=== PATIENT | female | born 1935 | race Caucasian/White ===

== ENCOUNTER 2020-11-10 08:21 | Outpatient (CLI) | payer MEDICARE, OTHER ==
--- NOTE | 2020-11-10 09:56 | CT Report ---
PROCEDURE: PELVIS WO INDICATIONS: PELVIC AND PERINEAL PAIN TECHNIQUE: Noncontrast 3 mm axial sections acquired through the bony pelvis, with coronal and sagittal reformatt ing. For radiation dose reduction, the following was used: automated exposure control, adjustment of mA and/or kV according to patient size. COMPARISON: None. FINDINGS: Image quality: Excellent. Bones: Diffuse osteopenia. No acute fracture identified. [id number]-ra-[id number] bilateral hip degenerative joint disease. Scattered degenerative spurring and subchondral sclerosis. Diffuse osteopenia. Multil evel spondylytic/degenerative endplate changes. Diffuse facet arthropathy. Soft tissues: Soft tissues are unremarkable. Scattered calcifications seen in the aorta bladder deco mpressed and otherwise unremarkable. Grade 1 anterolisthesis of L4 on L5. Mild L5 compression fractur e with moderate central height loss, technically age indeterminate. Calcific tendinitis seen at the r ight greater trochanter. IMPRESSION: No acute abnormality. 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 If the patient's pa in or other symptoms persist, consider further evaluation with MRI. Osteopenia. Reviewed by: Jonnie Cheng MD on 11/10/2020 9:54 AM PDT Approved by: Jonnie Cheng MD on 11/10/2020 9:54 AM PDT Station ID: [id number]
== END 2020-11-10 08:22 | disposition home or self-care (01) ==
LOC: DI 08:21
PROVIDERS: ATTEND Registered Nurse
DX: M16.0 Bilateral primary osteoarthritis of hip (principal)

== ENCOUNTER 2021-01-12 10:42 | Outpatient (CLI) | payer MEDICARE, OTHER ==
--- NOTE | 2021-01-12 14:09 | XRAY Report ---
PROCEDURE: Lumbar Spine 2 View INDICATIONS: COSTAL CHONDRITIS TECHNIQUE: 2 views of the lumbar spine were acquired. COMPARISON: Same day thoracic spine radiographs. CT pelvis 11/10/2020. FINDINGS: Bones: 5 [id number] vertebrae are present. Normal scoliosis. Anterolisthesis of L4 on L5 measur ing 0.8 cm. Mild L1 compression fracture. Minimal height loss at L3. Lumbar spine degenerative change . No suspicious bony lesions. Bones appear osteopenic. Soft tissues: Overlying bowel gas pattern is normal. Aortic vascular calcifications. No suspicious soft tissue calcifications. IMPRESSION: Age indeterminate L1 and L3 compression fractures. Bones appear osteopenic. Lumbar spine degenerative change. Reviewed by: Nikolay Jones MD on 01/12/2021 2:08 PM PDT Approved by: Nikolay Jones MD on 01/12/2021 2:08 PM PDT Station ID: [id number]
--- NOTE | 2021-01-12 14:30 | XRAY Report ---
PROCEDURE: Ribs Bilat w/Chest 4 View INDICATIONS: COSTAL CHONDRITIS TECHNIQUE: 3 views of the bilateral ribs were acquired, along with a single view chest. COMPARISON: Thoracic spine x-ray 01/12/2021 FINDINGS: Surgical changes and devices: None. Bones and chest wall: Multilevel compression deformities are present within the thoracic spine. No lynch spicious bony lesions. Overlying soft tissues appear unremarkable. There is rightward scoliotic cur vature within the lower thoracic spine. Lungs and pleura: No pleural effusions or pneumothorax. Lungs appear clear. Mediastinum: Mediastinal contours appear normal. Heart size is normal. IMPRESSION: 1. Multilevel thoracic spine compression deformities of indeterminate age. 2. No visualized rib fractures. Reviewed by: Anna Ashton MD on 01/12/2021 2:29 PM PDT Approved by: Anna Ashton MD on 01/12/2021 2:29 PM PDT Station ID: [id number]
--- NOTE | 2021-01-12 14:39 | XRAY Report ---
PROCEDURE: Thoracic Spine 2 View INDICATIONS: COSTAL CHONDRITIS TECHNIQUE: 3 views of the thoracic spine were acquired. COMPARISON: None. FINDINGS: Bones: Visualized ribs are intact. There is moderate wedging of a midthoracic vertebral body, roughly at the T7 level. Moderate wedging at T5. Moderate wedging at L1. These are of uncertain acuity. Soft tissues: No paravertebral stripe thickening. IMPRESSION: Age-indeterminate compression fractures within the thoracolumbar spine. MRI of the thoracic and lumba r spine is recommended for further assessment. Reviewed by: Silvia Bray MD on 01/12/2021 2:38 PM PDT Approved by: Silvia Bray MD on 01/12/2021 2:38 PM PDT Station ID: [id number]
[2021-01-12 15:25] LABS: ALBUMIN 3.8 g/dL (3.2-5.5); ALBUMIN/GLOBULIN RATIO 1.2 (1.0-2.2); BILIRUBIN,TOTAL 0.5 mg/dL (0.2-1.0); CALCIUM 8.6 mg/dL (8.5-10.3); CREATININE 0.6 mg/dL (0.4-1.0); TOTAL PROTEIN 7.1 g/dL (6.7-8.2)
== END 2021-01-12 10:43 | disposition home or self-care (01) ==
LOC: DI.S 10:42
PROVIDERS: ATTEND Nurse Practitioner Family
DX: M48.56XA Collapsed vertebra, not elsewhere classified, lumbar region, initial encounter for fracture (principal); M43.16 Spondylolisthesis, lumbar region; M47.816 Spondylosis without myelopathy or radiculopathy, lumbar region; R93.7 Abnormal findings on diagnostic imaging of other parts of musculoskeletal system; M94.0 Chondrocostal junction syndrome [Tietze]
CPT/HCPCS: 36415; 80053

== ENCOUNTER 2021-01-21 09:08 | Outpatient (CLI) | payer MEDICARE, OTHER | END 2021-01-21 09:09 | disposition home or self-care (01) | LOC: LAB.S 09:08 | PROVIDERS: ATTEND Registered Nurse | DX: M81.0 Age-related osteoporosis without current pathological fracture (principal) | CPT/HCPCS: 36415; 82306; 83970 ==

== ENCOUNTER 2021-01-22 08:27 | Outpatient (CLI) | payer MEDICARE, OTHER ==
--- NOTE | 2021-01-22 09:28 | DEXA Report ---
PROCEDURE: Dexa Spine and/or Hip INDICATIONS: ASYMPTOMATIC MENOPAUSAL STATE TECHNIQUE: Dual energy x-ray absorptiometry (DXA) was performed on a [employer] System. Regions measur ed are the AP Spine, femoral neck, and if needed forearm. COMPARISON: None. FINDINGS: Lumbar Spine: Bone Mineral Density 0.845 g/cm/cm,T score -2.8, osteoporosis Left Femoral Neck: Bone Mineral Density 0.499 g/cm/cm, T score -4.0, osteoporosis (T score greater or equal to -1.0: NORMAL) (T score from -1.1 to -2.4: OSTEOPENIA) (T score less than or equal to -2.5 to: OSTEOPOROSIS) Impression: Osteoporosis. Patient is at high risk for fracture. Patients with diagnosis of osteoporosis or osteopenia should have regular bone mineral density assess ment. For those eligible for Medicare, routine testing is allowed once every 2 years. Testing frequ ency can be increased for patients who have rapidly progressing disease or for those who are receivin g medical therapy to restore bone mass. Reviewed by: Victor Manuel Davidson MD on 01/22/2021 9:27 AM PDT Approved by: Victor Manuel Davidson MD on 01/22/2021 9:27 AM PDT Station ID: [id number]
== END 2021-01-22 08:28 | disposition home or self-care (01) ==
LOC: DI 08:27
PROVIDERS: ATTEND Nurse Practitioner Family
DX: M81.0 Age-related osteoporosis without current pathological fracture (principal)

== ENCOUNTER 2021-02-20 10:15 | Emergency (ER) | payer MEDICARE, OTHER ==
--- NOTE | 2021-02-20 10:30 | ED Physician Documentation ---
PD HPI LOWER EXT INJURY - Stated complaint Stated Complaint: HIP/DAVID PX - History obtained from History obtained from: Patient - History of Present Illness PD HPI LOW EXT INJURY LOCATION: Left, Hip, Other (also pain lumbar back.) Type of injury: Fall, Twist (had onset lumbar pain last week when bent over to water/turn potted plant. Today with slip and low velocity fall, but pain left hip and worse low back.) Where injury occurred: Home Timing - onset: Today (for left hip), How many weeks ago (last week onset of low back pain) Timing - duration: Days Timing - details: Abrupt onset, Still present Worsened by: Moving, Palpating, Other (attempted weight bearing) Associated symptoms: No: Weakness, Numbness Contributing factors: No: Anticoagulated, Prosthetic joint Similar symptoms before: Has not had sx before Recently seen: Clinic (seen in office with lumbar pain last week, with xray showing compression fx lumbar. Scheduled for MRI of lumbar area, but unable to get scheduled until Mar 04.) Review of Systems Constitutional: denies: Fever, Chills Nose: denies: Rhinorrhea / runny nose, Congestion Throat: denies: Sore throat Cardiac: denies: Chest pain / pressure Respiratory: denies: Dyspnea, Cough GI: denies: Abdominal Pain, Nausea, Vomiting, Diarrhea : denies: Dysuria Skin: denies: Rash, Lesions Neurologic: reports: Focal weakness (she feels left leg is weaker as it hurts to try to lift and move left hip.). denies: Generalized weakness, Numbness, Altered mental status, Head injury, LOC Endocrine: denies: Weight loss PD PAST MEDICAL HISTORY - Past Medical History Cardiovascular: None Respiratory: None Endocrine/Autoimmune: None GI: None : None HEENT: None Psych: None Musculoskeletal: None Derm: None - Past Surgical History HEENT: Cataracts - Present Medications Home Medications: Ambulatory Orders Medication Instructions Recorded Confirmed C,E,Zinc,Copper 24/Om3/Lut/Giana 1 cap PO DAILY 12/04/12 02/20/21 [Ocuvite Softgel] - Allergies Allergies/Adverse Reactions: Allergies Allergy/AdvReac Type Severity Reaction Status Date / Time No Known Drug Allergies Allergy Verified 02/20/21 10:27 PD ED PE NORMAL - Vitals Vital signs reviewed: Yes - General General: Alert and oriented X 3, Well developed/nourished - HEENT HEENT: Atraumatic - Neck Neck: Supple, no meningeal sign, No adenopathy - Cardiac Cardiac: RRR, No murmur - Respiratory Respiratory: Clear bilaterally - Abdomen Abdomen: Soft, Non tender - Back Back: No CVA TTP - Derm Derm: Normal color, Warm and dry, No rash - Neuro Neuro: Alert and oriented X 3, No motor deficit, No sensory deficit, Normal speech, Other (2+ DTR right patella, 1+ on left. Normal heel reflexes. ) Eye Opening: Spontaneous Motor: Obeys Commands Verbal: Oriented GCS Score: 15 - Psych Psych: Normal mood, Normal affect Results - Vitals Vitals: Vital Signs - 24 hr 02/20/21 02/20/21 02/20/21 10:25 12:32 14:00 Temperature 36.7 C Heart Rate 95 94 81 Respiratory 16 16 18 Rate Blood Pressure 140/67 H 180/100 H 153/86 H O2 Saturation 97 98 99 02/20/21 16:00 Temperature Heart Rate 76 Respiratory 14 Rate Blood Pressure 124/65 O2 Saturation 99 Oxygen O2 Source Room air - Labs Labs: Laboratory Tests 02/20/21 02/20/21 02/20/21 13:17 13:31 13:31 WBC 3.8 L RBC 2.85 L Hgb 10.3 L Hct 29.1 L MCV 102.1 H MCH 36.1 H MCHC 35.4 RDW 13.1 Plt Count 162 MPV 8.4 Neut # (Auto) 2.3 Lymph # (Auto) 1.1 L Jefferson # (Auto) 0.4 Eos # (Auto) 0.0 Baso # (Auto) 0.0 Absolute Nucleated RBC 0.00 Nucleated RBC % 0.0 ESR > 140 H Sodium Potassium Chloride Carbon Dioxide Anion Gap BUN Creatinine Estimated GFR (MDRD) Glucose Calcium Phosphorus Magnesium Total Bilirubin AST ALT Alkaline Phosphatase Total Protein Albumin Globulin Albumin/Globulin Ratio Lipase CA 125 Antigen Nasal Adenovirus (PCR) NOT DETECTED Nasal B. parapertussis DNA (PCR) NOT DETECTED Nasal Coronavir 229E PCR NOT DETECTED Nasal Coronavir HKU1 PCR NOT DETECTED Nasal Coronavir NL63 PCR NOT DETECTED Nasal Coronavir OC43 PCR NOT DETECTED Nasal Enterovir/Rhinovir PCR NOT DETECTED Nasal Influenza B PCR NOT DETECTED Nasal Influenza A PCR NOT DETECTED Nasal Parainfluen 1 PCR NOT DETECTED Nasal Parainfluen 2 PCR NOT DETECTED Nasal Parainfluen 3 PCR NOT DETECTED Nasal Parainfluen 4 PCR NOT DETECTED Nasal RSV (PCR) NOT DETECTED Nasal B.pertussis DNA PCR NOT DETECTED Nasal C.pneumoniae (PCR) NOT DETECTED Shyam Human Metapneumo PCR NOT DETECTED Nasal M.pneumoniae (PCR) NOT DETECTED Nasal SARS-CoV-2 (PCR) NOT DETECTED 02/20/21 02/20/21 13:31 13:31 WBC RBC Hgb Hct MCV MCH MCHC RDW Plt Count MPV Neut # (Auto) Lymph # (Auto) Jefferson # (Auto) Eos # (Auto) Baso # (Auto) Absolute Nucleated RBC Nucleated RBC % ESR Sodium 133 L Potassium 3.9 Chloride 96 L Carbon Dioxide 27 Anion Gap 10.0 BUN 13 Creatinine 0.4 Estimated GFR (MDRD) 151 Glucose 97 Calcium 9.1 Phosphorus 4.2 Magnesium 2.1 Total Bilirubin 0.7 AST 40 ALT 29 Alkaline Phosphatase 71 Total Protein 7.2 Albumin 3.3 Globulin 3.9 Albumin/Globulin Ratio 0.8 L Lipase 154 H CA 125 Antigen 26.8 Nasal Adenovirus (PCR) Nasal B. parapertussis DNA (PCR) Nasal Coronavir 229E PCR Nasal Coronavir HKU1 PCR Nasal Coronavir NL63 PCR Nasal Coronavir OC43 PCR Nasal Enterovir/Rhinovir PCR Nasal Influenza B PCR Nasal Influenza A PCR Nasal Parainfluen 1 PCR Nasal Parainfluen 2 PCR Nasal Parainfluen 3 PCR Nasal Parainfluen 4 PCR Nasal RSV (PCR) Nasal B.pertussis DNA PCR Nasal C.pneumoniae (PCR) Shyam Human Metapneumo PCR Nasal M.pneumoniae (PCR) Nasal SARS-CoV-2 (PCR) - Rads (name of study) lumbar CT Radiology: Prelim report reviewed (lytic deformity L1 with compression fx 60% (worse than xray last week). L3 mild compression fx.), See rad report pelvic CT Radiology: Prelim report reviewed (pathologic comminuted acetabular fracture into articulating surface. ), See rad report PD MEDICAL DECISION MAKING - ED course Complexity details: reviewed results (pathologic fractures pelvis and lumbar with bone lesions femoral necks and sacral. Presume mets or multiple myeloma or such. Less likely Pagets with normal Ca level. But needs further evaluation/te sting, and likely MRI. Also question of surgical treatment for the fractures. Needs higher level of car), considered differential (has had back and pelvic pain for months, butr abrupt lumbar pain with bending last week, that has persisted and worse today. Also pain left hip today after slip and fall. Unable to walk/bear weight due to pain. ), d/w patient ED course: [facility] had no beds and also transfer center impression was may be too complicated for them as well. [facility] deferred to given the pathologic features of the fractures. able to accept the patient to their ER. Departure - Departure Disposition: 02 Transfer Acute Care Hosp Clinical Impression: Bone lesion Lumbar compression fracture Qualifiers: Encounter type: initial encounter Lumbar vertebra fracture level: L1 Qualified Code(s): S32.010A - Wedge compression fracture of first lumbar vertebra, initial encounter for closed fracture Pathologic acetabular fracture Qualifiers: Encounter type: initial encounter Laterality: left Qualified Code(s): M84.454A - Pathological fracture, pelvis, initial encounter for fracture Condition: Stable Record reviewed to determine appropriate education?: Yes Discharge Date/Time: 02/20/21 17:25
[2021-02-20] MEDS ORDERED: methocarbamoL 500 MG TABLET PO STA (11:20)
[2021-02-20] MEDS ORDERED: HYDROcod/ACETAM 5/325 MG TABLET PO STA (11:20)
--- NOTE | 2021-02-20 12:12 | CT Report ---
PROCEDURE: PELVIS WO INDICATIONS: hip pain TECHNIQUE: Noncontrast 3 mm axial sections acquired through the bony pelvis, with coronal and sagittal reformatt ing. For radiation dose reduction, the following was used: automated exposure control, adjustment of mA and/or kV according to patient size. COMPARISON: 11/10/2020 Correlation is made with the accompanying lumbar spine MRI, 02/20/2021. FINDINGS: Image quality: Excellent. Bones: There is a comminuted fracture of the left acetabulum. At this site, the bone is abnormally l ucent and appears eroded. Intra-articular involvement of the fracture lines can be seen. No additional fractures are seen. Within the right sacrum, there is an abnormal lesion of mixed density seen, as on series 2 image 23 a nd on series 5 image 43. A similar-appearing mixed density lesion can be seen involving the left femo ral neck. A less prominent appearing mixed density lesion can be seen involving the right femoral nec k. Osteopenia and degenerative changes can be seen throughout. Soft tissues: Mild soft tissue hematoma can be seen adjacent adjacent to the left acetabular fractur e. Atherosclerotic calcification is seen. No dilated loops of small bowel are seen. No free air or signi ficant free fluid can be seen. An atrophic uterus can be seen, which is considered normal for age. No adnexal masses are seen. No inguinal hernias are seen. No enlarged lymph nodes are seen. IMPRESSION: Pathologic fracture until proven otherwise involving the left acetabulum, with a comminuted fracture with intra-articular involvement. The bone at this site is abnormally lucent and appears eroded. Abnormal mixed density lesions seen involving both femoral necks as well as the right sacrum. When clinically appropriate, please consider follow-up MRI examinations, without and with IV contrast for further evaluation of the bone marrow (assuming that there is no contraindication). The abnormal findings have developed since the 11/10/2020 CT. Reviewed by: Jorge Flores MD on 02/20/2021 11:11 AM ARSENIO Approved by: Jorge Flores MD on 02/20/2021 11:11 AM ARSENIO Station ID: [id number]
--- NOTE | 2021-02-20 12:19 | CT Report ---
PROCEDURE: LUMBAR SPINE WO INDICATIONS: low back/left hip pain acute TECHNIQUE: Noncontrast 3 mm thick sections acquired from the T12 level to the sacrum. Sagittal and coronal refo rmats were constructed. For radiation dose reduction, the following was used: automated exposure co ntrol, adjustment of mA and/or kV according to patient size. COMPARISON: Correlation is made with prior lumbar spine plain films, 02/11/2021. Correlation is also made with the accompanying pelvis CT, 02/20/2021. FINDINGS: Image quality: Excellent. Bones: At T12, there is a mild central compression deformity seen, with 30% loss of height. This is likely similar to the prior plain film. There is a central compression of arteries seen involving L1, with approximately 60% loss of height c entrally. This appears progressed compared to the prior examination. There is abnormal lucency seen w ithin this vertebral body, particularly superiorly. At L3, there is a central compression deformity seen, 30-40% loss of height. There is mild lucency se en along the superior aspect of this vertebral body. This fracture is likely slightly progressed comp ared to the plain film dated 02/11/2021. There is an L5 central compression deformity seen, with 30% loss of height centrally. This appears sl ightly progressed compared to the prior examination. There is mild grade 1 anterolisthesis seen at the L4-L5 level, without associated pars defects. Face t arthropathy is seen, which is most prominent inferiorly. Generalized osteopenia and degenerative changes are seen. Soft tissues: No retroperitoneal masses or hematomas. Visualized aorta is normal in caliber. Ather osclerotic calcification is seen. IMPRESSION: Several lumbar spine compression of arteries are seen, a few of which appear progressed compared to t he recent prior plain film study dated 02/11/2021. Given the abnormal lucency (particularly at the L1 level) pathologic fractures are suspected, althoug h benign osteopenic fractures are also possible. When clinically appropriate, please consider a dedicated lumbar MRI (without and with contrast) for f urther evaluation (assuming that there is no contraindication). Grade 1 L4-5 anterolisthesis again seen, without associated pars defects. Reviewed by: Jorge Flores MD on 02/20/2021 11:17 AM ARSENIO Approved by: Jorge Flores MD on 02/20/2021 11:17 AM ARSENIO Station ID: [id number]
[2021-02-20] MEDS ORDERED: KETOROLAC 15 MG/ML VIAL IVP STA (13:14)
[2021-02-20 13:51] LABS: BASOPHILS % (AUTO) 0.5 %; EOSINOPHILS % (AUTO) 0.5 %; HCT - HEMATOCRIT 29.1 % (37.0-47.0); HGB - HEMOGLOBIN 10.3 g/dL (12.0-16.0); LYMPHOCYTES # (AUTO) 1.1 10^3/uL (1.5-3.5); LYMPHOCYTES % (AUTO) 29.7 %; MEAN CORPUSCULAR HEMOGLOBIN 36.1 pg (27.0-31.0); MEAN CORPUSCULAR HGB CONC 35.4 g/dL (32.0-36.0); MEAN CORPUSCULAR VOLUME 102.1 fL (81.0-99.0); MEAN PLATELET VOLUME 8.4 fL (7.9-10.8); MONOCYTES # (AUTO) 0.4 10^3/uL (0.0-1.0); MONOCYTES % (AUTO) 9.1 %; NEUTROPHILS # (AUTO) 2.3 10^3/uL (1.5-6.6); NEUTROPHILS % (AUTO) 59.9 %; PLT - PLATELET COUNT 162 10^3/uL (130-450); RED BLOOD COUNT 2.85 10^6/uL (4.20-5.40); RED CELL DISTRIBUTION WIDTH 13.1 % (12.0-15.0); WHITE BLOOD COUNT 3.8 x10^3/uL (4.8-10.8)
[2021-02-20 14:01] LABS: ALBUMIN 3.3 g/dL (3.2-5.5); ALBUMIN/GLOBULIN RATIO 0.8 (1.0-2.2); BILIRUBIN,TOTAL 0.7 mg/dL (0.2-1.0); CALCIUM 9.1 mg/dL (8.5-10.3); CREATININE 0.4 mg/dL (0.4-1.0); MAGNESIUM 2.1 mg/dL (1.7-2.8); PHOSPHORUS 4.2 mg/dL (2.5-4.6); POTASSIUM 3.9 mmol/L (3.5-5.0); TOTAL PROTEIN 7.2 g/dL (6.7-8.2)
[2021-02-20 14:21] LABS: B. PARAPERTUSSIS- RESP PCR PAN NOT DETECTED; B. PERTUSSIS- RESP PCR PANEL NOT DETECTED; C. PNEUMONIAE- RESP PCR PANEL NOT DETECTED; CORONAVIRUS 229E-RESP PCR NOT DETECTED; CORONAVIRUS HKU1-RESP PCR NOT DETECTED; CORONAVIRUS NL63-RESP PCR NOT DETECTED; CORONAVIRUS OC43-RESP PCR NOT DETECTED; HUMAN METAPNEUMOVIRUS NOT DETECTED; INFLUENZA A- RESP PCR PANEL NOT DETECTED; INFLUENZA B - RESP PCR PANEL NOT DETECTED; M. PNEUMONIAE- RESP PCR PANEL NOT DETECTED; PARAINFLUENZA VIRUS 1 NOT DETECTED; PARAINFLUENZA VIRUS 2 NOT DETECTED; PARAINFLUENZA VIRUS 3 NOT DETECTED; PARAINFLUENZA VIRUS 4 NOT DETECTED; RHINOVIRUS/ENTEROVIRUS NOT DETECTED; RSV- RESP PCR PANEL NOT DETECTED; SARS-CoV-2 -RESP PCR PANEL NOT DETECTED
[2021-02-20] MEDS ORDERED: HYDROmorphone 1 MG/ML CARPUJECT IVP STA ×2 (14:48→17:17)
[2021-02-20 16:05] VITALS: BP 124/65
== END 2021-02-20 17:25 | disposition short-term general hospital (02) ==
LOC: ED 10:15
DX: M84.454A Pathological fracture, pelvis, initial encounter for fracture (principal); S32.020A Wedge compression fracture of second lumbar vertebra, initial encounter for closed fracture; X50.1XXA Overexertion from prolonged static or awkward postures, initial encounter; Z20.822 Contact with and (suspected) exposure to COVID-19; Z79.899 Other long term (current) drug therapy
CPT/HCPCS: 36415; 72131; 72192; 80053; 83690; 83735; 84100; 85025; 85651; 86304; 87631; 96374; 96375; 99284; 99285; A9270; J1170; 0202U

== ENCOUNTER 2021-02-20 17:20 | Outpatient (CLI) | payer MEDICARE, OTHER | END 2021-02-20 17:21 | disposition short-term general hospital (02) | LOC: EMS 17:20 | PROVIDERS: ATTEND Emergency Medicine | DX: S32.009A Unspecified fracture of unspecified lumbar vertebra, initial encounter for closed fracture (principal); S32.402A Unspecified fracture of left acetabulum, initial encounter for closed fracture; W18.30XA Fall on same level, unspecified, initial encounter | CPT/HCPCS: A0425; A0426 ==